=== PATIENT | female | born 1980 | race Caucasian/White ===

== ENCOUNTER 2016-09-22 18:41 | Inpatient (IN) | payer MEDICAID, OTHER ==
[~2016-09-22] VITALS: Ht 167.6 cm; Wt 90.9 kg
[~2016-09-22 18:41] MED LIST: DIVA250T45 PO; HC1C30 TP; LURA40 PO
[2016-09-22 19:17] LABS: BASOPHILS % (AUTO) 0.7 % (0.0-2.0); EOSINOPHILS % (AUTO) 2.3 % (1.0-6.0); HEMATOCRIT 38.7 % (36-46); HEMOGLOBIN 12.8 g/dL (12.0-16.0); LYMPHOCYTES # (AUTO) 1.7 K/uL (1.0-4.8); LYMPHOCYTES % (AUTO) 18.9 % (22.0-44.0); MEAN CORPUSCULAR HEMOGLOBIN 28.4 pg (26.0-34.0); MEAN CORPUSCULAR HGB CONC 32.9 G/dL (31.0-37.0); MEAN CORPUSCULAR VOLUME 86 fL (80-100); MONOCYTES # (AUTO) 0.6 K/uL (0.1-1.0); MONOCYTES % (AUTO) 7.1 % (2.0-9.0); NEUTROPHILS # (AUTO) 6.5 K/uL (1.8-7.7); PLATELET COUNT (AUTO) 273 K/uL (150-450); RED CELL DISTRIBUTION WIDTH 14.5 % (11.5-14.5); WHITE BLOOD COUNT (AUTO) 9.1 K/uL (4.5-11.0)
[2016-09-22 19:22] LABS: ANION GAP 9 mmol/L (8-16); CALCIUM, TOTAL 8.4 mg/dL (8.8-10.5); CARBON DIOXIDE 26 mmol/L (22-29); CHLORIDE 102 mmol/L (98-107); CREATININE 0.81 mg/dL (0.60-1.30); GLOMERULAR FILTR. RATE CALC > 60 mL/min (>60); POTASSIUM 3.6 mmol/L (3.5-5.1); SODIUM SERUM 137 mmol/L (136-145); UREA NITROGEN, BLOOD 15 mg/dL (7-18)
[2016-09-22 19:29] LABS: ALANINE AMINOTRANSFERASE 43 U/L (12-78); ALBUMIN 3.7 g/dL (3.4-5.0); ASPARTATE AMINOTRANSFERASE 22 U/L (15-37); BILIRUBIN,TOTAL 0.2 mg/dL (0.1-1.0); TOTAL PROTEIN, SERUM 7.2 g/dL (6.4-8.2)
[2016-09-22] MEDS ORDERED: OLANZapine 5 MG RAPDIS TABLET PO PRN (20:15)
[2016-09-22] MEDS ORDERED: ZOLPIDEM TARTRATE 10 MG TABLET PO PRN (20:15)
[2016-09-22] MEDS ORDERED: LORazepam 2 MG TABLET PO PRN (20:15)
[2016-09-23 00:01] VITALS: BP 109/63
[2016-09-23] MEDS ORDERED: PROMETHAZINE HCL 25 MG TABLET PO PRN (13:00)
[2016-09-23] MEDS ORDERED: GuaiFENesin/D-METHORPHAN [SUGAR-FREE] 200-20MG/10 ML SYRUP UDCUP PO PRN (13:00)
[2016-09-23] MEDS ORDERED: MAG HYDROX/AL HYDROX/SIMETH ES 30 ML SUSPENSION UDCUP PO PRN (13:00)
[2016-09-23] MEDS ORDERED: HydrOXYzine PAMOATE 50 MG CAPSULE PO PRN (13:00)
[2016-09-23] MEDS ORDERED: LOPERAMIDE HCL 2 MG CAPSULE PO PRN (13:00)
[2016-09-23] MEDS ORDERED: ACETAMINOPHEN 325 MG TABLET PO PRN (13:00)
[2016-09-23] MEDS ORDERED: MAGNESIUM HYDROXIDE SUSPENSION 30 ML UDCUP PO PRN (13:00)
[2016-09-23] MEDS ORDERED: OLANZapine 5 MG RAPDIS TABLET PO PRN (13:00)
[2016-09-23 16:05] VITALS: BP 107/64
[2016-09-23] MEDS: THIAMINE HCL 100 MG TABLET PO SCH (17:10)
[2016-09-23] MEDS: DIVALPROEX SODIUM 250 MG ER TABLET PO SCH (20:47)
[2016-09-23] MEDS ORDERED: OLANZapine 5 MG RAPDIS TABLET PO SCH (21:00)
[2016-09-24] MEDS: THIAMINE HCL 100 MG TABLET PO SCH ×2 (08:54→16:21)
[2016-09-24] MEDS: MULTIVITAMINS WITH MINERALS, THERAPEUTIC TABLET PO SCH (08:54)
[2016-09-24] MEDS: FOLIC ACID 1 MG TABLET PO SCH (08:54)
[2016-09-24] MEDS: NALTREXONE HCL 50 MG TABLET PO SCH (08:54)
[2016-09-24] MEDS ORDERED: OLAN5Z PO (11:26)
[2016-09-24] MEDS ORDERED: NALT50TA10 PO (11:26)
[2016-09-24] MEDS ORDERED: OLAN10TA22 PO (14:49)
[2016-09-24] MEDS ORDERED: DIVA250T45 PO (14:49)
[2016-09-24] MEDS ORDERED: NALT50 PO (14:49)
[2016-09-24 16:06] VITALS: BP 110/63
[2016-09-24] MEDS: DIVALPROEX SODIUM 250 MG ER TABLET PO SCH (20:08)
[2016-09-24] MEDS ORDERED: OLANZapine 10 MG RAPDIS TABLET PO SCH (21:00)
[2016-09-25 04:35] VITALS: BP 115/70
[2016-09-25] MEDS: NALTREXONE HCL 50 MG TABLET PO SCH (08:40)
[2016-09-25] MEDS: MULTIVITAMINS WITH MINERALS, THERAPEUTIC TABLET PO SCH (08:40)
[2016-09-25] MEDS: FOLIC ACID 1 MG TABLET PO SCH (08:41)
[2016-09-25] MEDS: THIAMINE HCL 100 MG TABLET PO SCH ×2 (08:41→16:00)
[2016-09-25 16:01] VITALS: BP 111/60
== END 2016-09-25 18:22 | disposition home or self-care (01) | DRG 750 ==
LOC: EMS 18:43 → B3A 22:18
PROVIDERS: ADMIT Psychiatry & Neurology Psychiatry; ATTEND Psychiatry & Neurology Psychiatry
DX: F20.0 Paranoid schizophrenia (principal); G40.909 Epilepsy, unspecified, not intractable, without status epilepticus; E66.9 Obesity, unspecified; F31.9 Bipolar disorder, unspecified; L72.3 Sebaceous cyst; F17.210 Nicotine dependence, cigarettes, uncomplicated; Z79.899 Other long term (current) drug therapy; Z68.32 Body mass index [BMI] 32.0-32.9, adult; Z91.19 Patient's noncompliance with other medical treatment and regimen
CPT/HCPCS: 99285; G0480